=== PATIENT | male | born 1975 | race Caucasian/White ===

== ENCOUNTER 2023-10-30 15:37 | Emergency (ER) | payer MEDICARE, MEDICAID, SELFPAY ==
[2023-10-30] VITALS (10 sets, daily range): BP systolic 112–129; BP diastolic 61–83; PULSE 81–89; RESP 17–22; TEMP 36.6–36.9; O2SAT 95–98; BMI 38.7
--- NOTE | 2023-10-30 15:34 | ECG_ITS ---
APPROVED REPORT Exam: Resting ECG HR:89 bpm ECG Measurements Heart Rate 89 AXES QRSd 86 QRS 64 QT 353 T 13 QTc 400 Conclusion Nondiagnostic, see repeat Electronically signed by : MUKESH AMADOR, 10/30/2023 23:14:39
--- NOTE | 2023-10-30 15:47 | ECG_ITS ---
APPROVED REPORT Exam: Resting ECG HR:84 bpm ECG Measurements Heart Rate 84 AXES DC 183 P 28 QRSd 84 QRS 36 QT 372 T 11 QTc 413 Conclusion Sinus rhythm with frequent PVCs Electronically signed by : MUKESH AMADOR, 10/30/2023 23:14:53
--- NOTE | 2023-10-30 15:52 | XR_ITS ---
FINAL REPORT CLINICAL HISTORY: cp FINDINGS: SINGLE-VIEW CHEST The heart size is normal. The mediastinum is normal. The lungs are clear. There is no pneumothorax. IMPRESSION: No acute cardiopulmonary process. Reviewed, Interpreted and Dictated by Vahid Hudson III, MD Transcribed by Trish Warren Authenticated and [facility]
[2023-10-30 15:59] LABS: Basophils # 0.1 K/mm3 (0-0.2); Basophils % 0.9 % (0.1-2.0); Eosinophils # 0.1 K/mm3 (0.0-0.4); Eosinophils % 1.2 % (0.1-12.0); Hematocrit 39.1 % (42.0-52.0); Hemoglobin 12.7 g/dL (14.1-18.0); Lymphocytes % 22.7 % (10-50); Mean Corpuscular HGB Conc 32.6 g/dL (31.8-35.4); Mean Corpuscular Hemoglobin 31.8 pg (27.0-31.2); Mean Corpuscular Volume 97.5 fl (80-94); Monocytes # 0.7 K/mm3 (0.1-1.0); Monocytes % 7.6 % (1.7-9.3); Neutrophils # 6.1 K/mm3 (1.8-7.8); Neutrophils % 67.7 % (37.0-80.0); Platelet Count 237 K/mm3 (142-424); Red Blood Count 4.01 M/mm3 (4.60-6.20); Red Cell Distribution Width 15.5 % (11.5-17.5)
[2023-10-30 16:00] LABS: VBG Base Excess -4.1 mmol/L (-2.4-2.3); VBG HCO3 20.7 mmol/L (23-30); VBG Oxygen Saturation 95.6 % (50-70); VBG PCO2 33.8 mmol/L (35-51); VBG PO2 79.9 mmol/L (28-40); VBG Total CO2 21.7 mmol/L (23-27)
[2023-10-30 16:01] LABS: Lactate Venous 2.3 mmol/L (0.4-2.0)
[2023-10-30 16:03] LABS: Chloride 104 mmol/L (98-107); Potassium 4.2 mmoL/L (3.5-5.1); Sodium 137 mmol/L (136-145)
[2023-10-30 16:05] LABS: Alanine Aminotransferase 71 U/L (12-78); Aspartate Amino Transferase 55 U/L (17-59); Blood Urea Nitrogen 5 mg/dl (9-20); Creatinine Clearance Estimated 151 mL/min (50-200); Estimated Glomerular Filt Rate 89 ml/min (>60); GFR (African American) 108 ML/MIN (>60)
[2023-10-30 16:06] LABS: Albumin Level 3.6 g/dl (3.5-5.0); Albumin/Globulin Ratio 1.2 (1.1-1.8); Alkaline Phosphatase 69 U/L (38-126); Anion Gap 11.2 mEq/L (5-15); Bilirubin,Total 0.5 mg/dl (0.2-1.3); Carbon Dioxide 26 mmol/L (22.0-30.0); Globulin 3.1 g/dL (1.3-3.2); Glucose 108 mg/dl (74-100); Total Protein,Serum 6.7 g/dl (6.3-8.2)
--- NOTE | 2023-10-30 16:15 | ED_ITS ---
Discharge Plan Disposition Patient Disposition: Home, Self-Care Chief Complaint: Chest Pain Referrals Follow up/Referrals: Rajiv Godfrey APRN [Primary Care Provider] - See instructions Troy Mendoza MD [Staff Physician] - See instructions Activity Restrictions/Add. Instructions Additional Instructions/Restrictions: Call your family doctor to establish care for this visit to the emergency department and schedule follow-up within 48 hours to ensure improvement. If you have any worsening of your condition or any other concerning signs or symptoms, return to the emergency department or your primary care doctor for further evaluation. Follow-up with Dr. Mendoza, shuttle filler, office for further evaluation. Clinical Impressions Clinical Impression: Chest pain Discharge ED Provider: Arun Karimi General Adult HPI General Chief complaint: Chest Pain Stated complaint: Chest Pain Time Seen by Provider: 10/30/23 15:52 Mode of Arrival: EMS Source of Information: Patient Limitations: No Limitations Description of Symptoms (Recalled from ER Triage Doc. by RN): Pt c/o left sided chest pain that started an hout prior to arrival. Pt describes pain as sudden and sharp. Pain was 8/10 prior to EMS given 1 spray of nitro and 324mg of aspirin. Pt reports current pain level is 2/10. Pain does not radiate. Pt denies N/V, SOA, dizziness. History of Present Illness HPI narrative: Please note that above description of symptoms, in this electronic medical record under categorization of recalled from ER triage doctor by RN are reflective of an initial nursing assessment, however, is not reflective of my full history and physical exam that was personally taken and clarified. Consequentially, this preceding description of symptoms, which may include the patient's categorized chief complaint in the EMR, do not reflect my personal clinical impression, and the ultimate description of history of present illness and patient stated complaints should be deferred to this section of the note. Unless stated otherwise or congruent with this section of the note, additional signs, symptoms, or incongruence should be interpreted as inaccurate with my clinical impression. Related Data Allergies Allergy/AdvReac Type Severity Reaction Status Date / Time carbamazepine [From Tegretol] Allergy Verified 10/30/23 16:25 [facility] Disclaimer: The information contained in this section may have been updated after the patient was seen, as this information can be updated by other users. Social History Smoking Status: Never smoker alcohol intake: never current occupational status: unemployed Travel in the last 8 weeks: None ROS Obtained: Yes All systems reviewed & no additional complaints except as documented Physical Exam General General appearance: alert, in no apparent distress and other Head Head exam: atraumatic and normocephalic Eye Eye exam: Present normal appearance, PERRL and EOMI ENT ENT exam: Present mucous membranes moist Neck Neck exam: Present normal inspection, full ROM and trachea midline Respiratory Respiratory exam: Absent respiratory distress, wheezes, stridor, accessory muscle use or prolonged expiratory phase Cardiovascular Cardiovascular exam: Present regular rate and normal rhythm Abdominal Exam Abdominal exam: Present soft; Absent distention, tenderness, guarding, rebound or rigidity Extremities Exam Extremities exam: Absent edema Neurological Exam Neurological exam: Present alert, oriented X3, CN II-XII intact, normal gait and other (Tremor noted at rest); Absent motor sensory deficit Skin Skin exam: Present warm and dry; Absent diaphoresis or erythema Medical Decision Making Medical Records Medical records reviewed: Yes I reviewed the patient's medical records. Ming Inquiry Pt receiving controlled substance: No Ming was queried for this patient: No Vital Signs: 10/30/23 15:37 10/30/23 16:01 10/30/23 16:30 Temperature 97.9 F Temperature Source Oral Pulse Rate 89 88 Pulse Rate [Apical] 89 Respiratory Rate 20 17 Blood Pressure 117/72 113/73 Blood Pressure [Right Arm] 129/70 Blood Pressure Mean 80 Blood Pressure Mean [Right Arm] 89 Blood Pressure Source [Right Arm] Automatic Cuff Blood Pressure Position [Right Arm] Sitting 02 Sat by Pulse Oximetry 95 97 96 Oxygen Delivery Method Room Air Room Air Room Air 10/30/23 17:00 10/30/23 17:30 10/30/23 18:00 Temperature Temperature Source Pulse Rate 89 Pulse Rate [Apical] Respiratory Rate 22 21 22 Blood Pressure 113/61 123/78 116/63 Blood Pressure [Right Arm] Blood Pressure Mean Blood Pressure Mean [Right Arm] Blood Pressure Source [Right Arm] Blood Pressure Position [Right Arm] 02 Sat by Pulse Oximetry 97 Oxygen Delivery Method Room Air 10/30/23 18:30 Temperature Temperature Source Pulse Rate 89 Pulse Rate [Apical] Respiratory Rate 18 Blood Pressure 112/61 Blood Pressure [Right Arm] Blood Pressure Mean Blood Pressure Mean [Right Arm] Blood Pressure Source [Right Arm] Blood Pressure Position [Right Arm] 02 Sat by Pulse Oximetry 96 Oxygen Delivery Method Room Air Lab Data Lab Results 10/30/23 15:40: WBC 9.0, RBC 4.01 L, Hgb 12.7 L, Hct 39.1 L, MCV 97.5 H, MCH 31.8 H, MCHC 32.6, RDW 15.5, Plt Count 237, MPV 8.0, Neut % (Auto) 67.7, Lymph % (Auto) 22.7, Crawford % (Auto) 7.6, Eos % (Auto) 1.2, Baso % (Auto) 0.9, Neut # (Auto) 6.1, Lymph # (Auto) 2.0, Crawford # (Auto) 0.7, Eos # (Auto) 0.1, Baso # (Auto) 0.1, Sodium 137, Potassium 4.2, Chloride 104, Carbon Dioxide 26, Anion Gap 11.2, BUN 5 L, Creatinine 0.90, Estimated Creat Clear 151, Estimated GFR 89, Est GFR ( Amer) 108, Glucose 108 H, Calcium 9.0, Magnesium 1.4 L, Total Bilirubin 0.5, AST 55, ALT 71, Alkaline Phosphatase 69, Troponin I < 0.01, N T-Pro-B Natriuret Pep 198 H, Total Protein 6.7, Albumin 3.6, Globulin 3.1, Albumin/Globulin Ratio 1.2, TSH 4.21, Thyroxine (T4) 5.7 10/30/23 15:52: VBG pH 7.40, VBG pCO2 33.8 L, VBG pO2 79.9 H, VBG HCO3 20.7 L, V BG Total CO2 21.7 L, VBG O2 Saturation 95.6 H, VBG Base Excess -4.1 L, VBG Lactic Acid 2.3 H 10/30/23 18:41: Troponin I < 0.01 10/30/23 15:40 10/30/23 15:40 Orders (Tests/Meds): ED MEDICATIONS Discontinued Medications Generic Name Dose Route Start Last Admin Trade Name Freq PRN Reason Stop Dose Admin Aspirin 324 mg 10/30/23 15:52 10/30/23 17:12 Aspirin 81mg Chewable Tablet PO 10/30/23 15:53 Not Given ONCE ONE Magnesium Sulfate 2 gm in 50 mls @ 50 mls/hr 10/30/23 17:36 10/30/23 17:44 Magnesium Sulfate 2gm/50ml Premix IV 10/30/23 18:35 50 mls/hr ONCE ONE Administration Magnesium Sulfate 2 gm in 50 mls @ 50 mls/hr 10/30/23 17:36 10/30/23 18:42 Magnesium Sulfate 2gm/50ml Premix IV 10/30/23 18:35 50 mls/hr ONCE ONE Administration ORDERS Category Date Time Status XR chest portable Stat Exams 10/30/23 15:52 Completed Complete Blood Count Auto Diff Stat Lab 10/30/23 15:40 Completed Comprehensive Metabolic Panel Stat Lab 10/30/23 15:40 Completed Magnesium Stat Lab 10/30/23 15:40 Completed NT Pro Brain Natriuretic Pep. Stat Lab 10/30/23 15:40 Completed T4 (Thyroxine) Stat Lab 10/30/23 15:40 Completed TSH [Thyroid Stimulating Hormone] Stat Lab 10/30/23 15:40 Completed Troponin I Q3H Lab 10/30/23 18:41 Completed Troponin I Q3H Lab 10/30/23 22:00 Ordered Troponin I Stat Lab 10/30/23 15:40 Completed Venous Blood Gas Stat RT 10/30/23 15:52 Completed HEART Score History (anamnesis): Slightly suspicious ECG: Non-specific disturbance Age: 45-65 years Risk factors: 1-2 risk factors Troponin: </= normal limit HEART Score: 3 Medical Decision Narrative: Chronically ill 48-year-old man history of seizure disorder, hypertension, hypothyroidism, presenting with chest pain. Patient states that just for arrival, started having left-sided chest pain. Started while he was on the couch. Just left of sternum, intermittently stabbing, was only there for a couple of minutes then self resolved. Not positional, not exertional, nothing in particular brings it on or made it better. Has never had this in the past. No cough, fevers, chills, shortness of breath, nausea, vomiting, diaphoresis, sick contacts, or any other concerns. No DVT or PE risk factors. History was obtained via conversation with patient. On arrival, patient hemodynamically stable, alert, oriented x4, appropriate, GCS 15, moving all extremities spontaneously, pupils equal and reactive to light. Full physical exam performed and significant for chronically ill disheveled appearing male in no acute distress. Lungs are clear to auscultation bilaterally anterior and posteriorly. Nontachypneic, nontachycardic, normotensive, neurologically intact without any acute findings. Bilateral lower extremities without edema, pulses are equal and symmetric in bilateral upper and lower extremities. Differential includes microvascular coronary artery disease, CHF, ACS, UT, coronary artery dissection, pneumothorax, PE, dissection, pericarditis, myocarditis, pneumothorax, aortic aneurysm, pneumonia, bronchitis, among others. Patient was given 324 mg aspirin p.o. for symptomatic management and correction of underlying abnormalities. Workup independently interpreted and significant for nonactionable CBC or chemistry. Initial troponin negative. Chest x-ray without acute cardiopulmonary airspace disease. See radiology read for full review of final results. Independent rotation of initial EKG nondiagnostic with baseline tremor. Independent interpretation of EKG shows sinus rhythm about [address] or T wave changes concerning for acute ischemia. Patient is having frequent PVCs, but irregularly occurring. OK, QRS, QT intervals within normal limits. Heart score 3. Patient was placed in observation beginning at 4 PM in order to order to rule out evolving UT with delta troponins and determine need for admission versus home-going. The patient was provided serial exams and monitoring, aspirin while awaiting results. Independent interpretation of results demonstrated negative delta troponin. On reevaluation, patient still without pain or discomfort. At this time, I feel patient is appropriate for discharge. Total observation time 3 hours. Because patient at baseline without signs or symptoms of clinical decompensation, deemed appropriate for discharge. Results were relayed to patient who voiced understanding and were agreeable to outpatient management and follow up. I discussed my clinical impression with patient and answered all questions. At this time, the evidence for any other entities in the differential is insufficient to warrant any further testing or ED observation. This was explained as well. Advisory was given that persistent or worsening symptoms require further evaluation. I confirmed the understanding of this discussion. Critical Care Critical Care Time Critical Care Time: No
[2023-10-30 16:16] LABS: NT Pro Brain Natriuretic Pep. 198 pg/mL (0-125)
[2023-10-30 16:21] LABS: Troponin I < 0.01 ng/ml (0.00-0.034)
[2023-10-30 16:23] LABS: T4 (Thyroxine) 5.7 ug/dl (5.53-11.0)
[2023-10-30 16:25] LABS: Magnesium 1.4 mg/dl (1.6-2.3)
[2023-10-30 16:37] LABS: Thyroid Stimulating Hormone 4.21 uIU/mL (0.465-4.68)
[2023-10-30] MEDS: MAGNESIUM SULFATE IN WATER 2 GM/50 ML PIGGYBACK IV ×2 (17:44→18:42)
[2023-10-30 19:13] LABS: Troponin I < 0.01 ng/ml (0.00-0.034)
--- NOTE | 2023-10-30 19:39 | PC.NURSE ---
anil notified that patient is ready to be picked up
[2023-10-30 20:01] LABS: Reflex Lactic Add Lactic Reflex
== END 2023-10-30 20:20 | disposition home or self-care (01) ==
PROVIDERS: Emergency Provider Emergency Medicine; PCP Nurse Practitioner Acute Care
DX: R07.9 Chest pain, unspecified (principal); I49.3 Ventricular premature depolarization
CPT/HCPCS: 71045; 80053; 82803; 83735; 83880; 84436; 84443; 84484; 85025; 93005; 96365; 99284; J3475

== ENCOUNTER 2024-05-08 16:46 | Emergency (ER) | payer MEDICARE, MEDICAID, SELFPAY ==
[2024-05-08 16:46] VITALS: BP 153/85; PULSE 76; RESP 16; TEMP 36.6; O2SAT 95; BMI 37.1
--- NOTE | 2024-05-08 16:54 | HMH.EDGENADL ---
Discharge Plan Disposition Patient Disposition: Home, Self-Care Condition: Good Referrals Follow up/Referrals: Rajiv Godfrey APRN [Primary Care Provider] - See instructions Activity Restrictions/Add. Instructions Additional Instructions/Restrictions: You need to follow-up both with psychiatry and neurology for further evaluation of your tremors. Schedule appointment as soon as possible. Return to ER for any worsening signs or symptoms as needed Clinical Impressions Clinical Impression: Tremor Print Language Print Language: Chilean Discharge ED Provider: Arun Karimi General Adult HPI <RENETTA Echols - Last Filed: 05/08/24 18:06> General Chief complaint: Seizure Stated complaint: TREMORS Time Seen by Provider: 05/08/24 16:54 Mode of Arrival: EMS Source of Information: EMS Limitations: No Limitations Description of Symptoms (Recalled from ER Triage Doc. by RN): Reports possible seizure activity. Patient with tremors. History of Present Illness HPI narrative: Patient presents with what was reported initially as a seizure. EMS got called because patient was having a reported seizure. Patient does have an review of his medication list a history of seizure disorder. Unfortunate the patient is a poor historian and is actually a zurita of the [facility]. While we received a medication list we did not receive a medical health summary thus patient has unknown chronic conditions. He review his medication list however he does have apparently a seizure disorder given he is on Depakote as well as a psychiatric disorder as he is on multiple psychoactive medications. Patient reports that he has had hands shaking since he went to [facility] and they change medication. Patient does not know what provider he saw on regimen nor what medication they changed. According to EMS patient was not having a seizure however was having tremulous movements of his left upper extremity and right anterior thigh and that is what the staff reported they thought with a seizure. Patient however arrives without any chest pain fever chills hemoptysis hematochezia melena and denies any current complaints. He seems to be unbothered about the tremors and denies it causes him pain. Related Data Allergies Allergy/AdvReac Type Severity Reaction Status Date / Time carbamazepine (From Tegretol) Allergy Verified 10/30/23 16:25 PF[facility] <RENETTA Echols - Last Filed: 05/08/24 18:06> [facility] Disclaimer: The information contained in this section may have been updated after the patient was seen, as this information can be updated by other users. Social History (Updated 10/30/23 @ 19:26 by Arun Karimi MD) Smoking Status: Unknown if ever smoked alcohol intake: never current occupational status: unemployed Travel in the last 8 weeks: None <RENETTA Echols - Last Filed: 05/08/24 18:06> ROS Obtained: Yes Systems reviewed as appropriate & no additional complaints except as documented Physical Exam <RENETTA Echols - Last Filed: 05/08/24 18:06> General General appearance: alert and in no apparent distress Respiratory Respiratory exam: Present normal lung sounds bilaterally Cardiovascular Cardiovascular exam: Present regular rate Neurological Exam Neurological exam: Present alert and oriented X3 Medical Decision Making <RENETTA Echols - Last Filed: 05/08/24 18:06> Medical Records Medical records reviewed: Yes I reviewed the patient's medical records. Screening: Per USPSTF and CDC recommendations, given the prevalence of disease in our region, it is our hospital?s policy to screen for HIV and viral Hepatitis for all patients aged 18 and over and those with ongoing risk factors. Ming Inquiry Pt receiving controlled substance: No Vital Signs: 05/08/24 16:46 05/08/24 17:25 05/08/24 18:10 Temperature 97.9 F 98.2 F Temperature Source Oral Pulse Rate 82 77 Pulse Rate [Radial] 76 Respiratory Rate 16 18 Blood Pressure 139/74 132/94 H Blood Pressure [Right Arm] 153/85 H Blood Pressure Mean [Right Arm] 107 Blood Pressure Source [Right Arm] Automatic Cuff Blood Pressure Position [Right Arm] Sitting 02 Sat by Pulse Oximetry 95 96 Oxygen Delivery Method Room Air Room Air Room Air Lab Data Lab results reviewed: Yes I reviewed the patient's lab results. Lab Results 05/08/24 16:48: WBC 7.6, RBC 3.99 L, Hgb 12.6 L, Hct 36.1 L, MCV 90.5, MCH 31.6 H, MCHC 34.9, RDW 15.3, Plt Count 274, MPV 7.1 L, Neut % (Auto) 66.1, Lymph % (Auto) 25.5, Norton % (Auto) 6.7, Eos % (Auto) 1.0, Baso % (Auto) 0.7, Neut # (Auto) 5.0, Lymph # (Auto) 1.9, Norton # (Auto) 0.5, Eos # (Auto) 0.1, Baso # (Auto) 0.1, Sodium 138, Potassium 3.9, Chloride 102, Carbon Dioxide 26, Anion Gap 13.9, BUN 10, Creatinine 1.00, Estimated Creat Clear 130, Estimated GFR 79, Est GFR ( Amer) 96, Glucose 111 H, Calcium 9.3, Magnesium 1.6, Total Bilirubin 0.5, AST 39, ALT 30, Alkaline Phosphatase 62, Total Creatine Kinase 368 H, Total Protein 8.2, Albumin 4.1, Globulin 4.1 H, Albumin/Globulin Ratio 1.0 L 05/08/24 17:05: Lactate 1.9 05/08/24 16:48 05/08/24 16:48 Orders (Tests/Meds): ED MEDICATIONS Discontinued Medications Generic Name Dose Route Start Last Admin Trade Name Freq PRN Reason Stop Dose Admin Benztropine Mesylate 2 mg 05/08/24 17:06 05/08/24 17:51 Benztropine 1mg Tablet PO 05/08/24 17:07 2 mg ONCE ONE Administration Diphenhydramine HCl 50 mg 05/08/24 17:16 05/08/24 17:36 Diphenhydramine 50mg/Ml Vial IM 05/08/24 17:17 50 mg ONCE ONE Administration ORDERS Category Date Time Status CBC w/Auto Diff [Complete Blood Count Auto Diff] Stat Lab 05/08/24 16:48 Completed CK [Creatine Kinase] Stat Lab 05/08/24 16:48 Completed CMP [Comprehensive Metabolic Panel] Stat Lab 05/08/24 16:48 Completed Lactic Acid Stat Lab 05/08/24 17:05 Completed Magnesium Stat Lab 05/08/24 16:48 Completed Medical Decision Narrative: In summary patient is a 48-year-old male who presents to the emergency department for evaluation of tremors. Patient is hemodynamically stable upon arrival, afebrile. Physical exam is remarkable for currently a resting tremor of the left upper extremity from the elbow down and isolated right quadriceps tremor the tremors are regular moderate in speed and amplitude. They persist even with intention as well as at rest. Patient has no neuromuscular weakness although I do not know what his functional baseline is he was able to move from the ambo stretcher to the bed without assistance. He is awake alert and somewhat oriented to person place and circumstance but has difficulty recalling specific details of his medical history including who is seeing and for what problem and what medications he is on. He is a zurita of the [facility]. Cranial nerves II through XII are intact grossly to exam. Patient has no focal neurologic deficits otherwise. Patient has no tetany.. Differential diagnosis includes dyskinesia versus electrolyte abnormalities versus parkinsonian is him versus EPS etc. Initial workup will be conducted with hematologic labs. Initial interventions include Cogentin and Benadryl. Initial workup reviewed by me shows his hematologic labs are significant for a CK of 368. Upon repeat evaluation patient briefly appeared to not have the tremor however when he tried to move it began again. Again it persists not only at rest but with intention. However he has no focal neurologic deficits otherwise.. Given this patient is appropriate for discharge with referral to his neurologist and psychiatrist within 48 hours or sooner if his symptoms worsen or progress. <Arun Karimi MD - Last Filed: 05/08/24 20:02> Vital Signs: 05/08/24 16:46 05/08/24 17:25 05/08/24 18:10 Temperature 97.9 F 98.2 F Temperature Source Oral Pulse Rate 82 77 Pulse Rate [Radial] 76 Respiratory Rate 16 18 Blood Pressure 139/74 132/94 H Blood Pressure [Right Arm] 153/85 H Blood Pressure Mean [Right Arm] 107 Blood Pressure Source [Right Arm] Automatic Cuff Blood Pressure Position [Right Arm] Sitting 02 Sat by Pulse Oximetry 95 96 Oxygen Delivery Method Room Air Room Air Room Air Lab Data Lab Results 05/08/24 16:48: WBC 7.6, RBC 3.99 L, Hgb 12.6 L, Hct 36.1 L, MCV 90.5, MCH 31.6 H, MCHC 34.9, RDW 15.3, Plt Count 274, MPV 7.1 L, Neut % (Auto) 66.1, Lymph % (Auto) 25.5, Norton % (Auto) 6.7, Eos % (Auto) 1.0, Baso % (Auto) 0.7, Neut # (Auto) 5.0, Lymph # (Auto) 1.9, Norton # (Auto) 0.5, Eos # (Auto) 0.1, Baso # (Auto) 0.1, Sodium 138, Potassium 3.9, Chloride 102, Carbon Dioxide 26, Anion Gap 13.9, BUN 10, Creatinine 1.00, Estimated Creat Clear 130, Estimated GFR 79, Est GFR ( Amer) 96, Glucose 111 H, Calcium 9.3, Magnesium 1.6, Total Bilirubin 0.5, AST 39, ALT 30, Alkaline Phosphatase 62, Total Creatine Kinase 368 H, Total Protein 8.2, Albumin 4.1, Globulin 4.1 H, Albumin/Globulin Ratio 1.0 L 05/08/24 17:05: Lactate 1.9 Orders (Tests/Meds): ED MEDICATIONS Discontinued Medications Generic Name Dose Route Start Last Admin Trade Name Freq PRN Reason Stop Dose Admin Benztropine Mesylate 2 mg 05/08/24 17:06 05/08/24 17:51 Benztropine 1mg Tablet PO 05/08/24 17:07 2 mg ONCE ONE Administration Diphenhydramine HCl 50 mg 05/08/24 17:16 05/08/24 17:36 Diphenhydramine 50mg/Ml Vial IM 05/08/24 17:17 50 mg ONCE ONE Administration ORDERS Category Date Time Status CBC w/Auto Diff [Complete Blood Count Auto Diff] Stat Lab 05/08/24 16:48 Completed CK [Creatine Kinase] Stat Lab 05/08/24 16:48 Completed CMP [Comprehensive Metabolic Panel] Stat Lab 05/08/24 16:48 Completed Lactic Acid Stat Lab 05/08/24 17:05 Completed Magnesium Stat Lab 05/08/24 16:48 Completed Medical Decision Narrative: In summary patient is a 48-year-old male who presents to the emergency department for evaluation of tremors. Patient is hemodynamically stable upon arrival, afebrile. Physical exam is remarkable for currently a resting tremor of the left upper extremity from the elbow down and isolated right quadriceps tremor the tremors are regular moderate in speed and amplitude. They persist even with intention as well as at rest. Patient has no neuromuscular weakness although I do not know what his functional baseline is he was able to move from the ambo stretcher to the bed without assistance. He is awake alert and somewhat oriented to person place and circumstance but has difficulty recalling specific details of his medical history including who is seeing and for what problem and what medications he is on. He is a zurita of the [facility]. Cranial nerves II through XII are intact grossly to exam. Patient has no focal neurologic deficits otherwise. Patient has no tetany.. Differential diagnosis includes dyskinesia versus electrolyte abnormalities versus parkinsonian is him versus EPS etc. Initial workup will be conducted with hematologic labs. Initial interventions include Cogentin and Benadryl. Initial workup reviewed by me shows his hematologic labs are significant for a CK of 368. Upon repeat evaluation patient briefly appeared to not have the tremor however when he tried to move it began again. Again it persists not only at rest but with intention. However he has no focal neurologic deficits otherwise.. Given this patient is appropriate for discharge with referral to his neurologist and psychiatrist within 48 hours or sooner if his symptoms worsen or progress. I was consulted by the ADRY, and we discussed the complexity of the problems being addressed. I approved the treatment and management plan for this patient's care in the Emergency Department, thus performing a substantive portion of the medical decision making. Arun Karimi MD Critical Care <RENETTA Echols - Last Filed: 05/08/24 18:06> Critical Care Time Critical Care Time: No
[2024-05-08 17:08] LABS: Albumin Level 4.1 g/dl (3.5-5.0); Chloride 102 mmol/L (98-107); Potassium 3.9 mmoL/L (3.5-5.1); Sodium 138 mmol/L (136-145)
[2024-05-08 17:10] LABS: Alanine Aminotransferase 30 U/L (12-78); Aspartate Amino Transferase 39 U/L (17-59); Blood Urea Nitrogen 10 mg/dl (9-20); Creatinine Clearance Estimated 130 mL/min (50-200); Estimated Glomerular Filt Rate 79 ml/min (>60); GFR (African American) 96 ML/MIN (>60)
[2024-05-08 17:11] LABS: Alkaline Phosphatase 62 U/L (38-126); Anion Gap 13.9 mEq/L (5-15); Bilirubin,Total 0.5 mg/dl (0.2-1.3); Calcium 9.3 mg/dl (8.4-10.2); Carbon Dioxide 26 mmol/L (22.0-30.0); Creatine Kinase 368 U/L (55-170); Globulin 4.1 g/dL (1.3-3.2); Glucose 111 mg/dl (74-100); Total Protein,Serum 8.2 g/dl (6.3-8.2)
[2024-05-08 17:12] LABS: Magnesium 1.6 mg/dl (1.6-2.3)
[2024-05-08 17:21] LABS: Basophils # 0.1 K/mm3 (0-0.2); Basophils % 0.7 % (0.1-2.0); Eosinophils # 0.1 K/mm3 (0.0-0.4); Hematocrit 36.1 % (42.0-52.0); Hemoglobin 12.6 g/dL (14.1-18.0); Lymphocytes # 1.9 K/mm3 (0.7-4.5); Lymphocytes % 25.5 % (10-50); Mean Corpuscular HGB Conc 34.9 g/dL (31.8-35.4); Mean Corpuscular Hemoglobin 31.6 pg (27.0-31.2); Mean Corpuscular Volume 90.5 fl (80-94); Mean Platelet Volume 7.1 fl (7.4-10.4); Monocytes # 0.5 K/mm3 (0.1-1.0); Monocytes % 6.7 % (1.7-9.3); Neutrophils % 66.1 % (37.0-80.0); Platelet Count 274 K/mm3 (142-424); Red Blood Count 3.99 M/mm3 (4.60-6.20); Red Cell Distribution Width 15.3 % (11.5-17.5); White Blood Count 7.6 K/mm3 (4.8-10.8)
[2024-05-08 17:25] VITALS: BP 139/74; PULSE 82; O2SAT 96
[2024-05-08 17:25] LABS: Lactic Acid 1.9 mmol/L (0.7-2.1)
[2024-05-08] MEDS: diphenhydrAMINE 50MG/ML VIAL 50 MG IM (17:36)
[2024-05-08] MEDS: BENZTROPINE 1MG TABLET 2 MG PO (17:51)
--- NOTE | 2024-05-08 17:56 | PC.NURSE ---
anil notified that pt is ready for dc, states they will send someone right now
[2024-05-08 18:10] VITALS: BP 132/94; PULSE 77; RESP 18; TEMP 36.8; O2SAT 96
== END 2024-05-08 18:11 | disposition home or self-care (01) ==
PROVIDERS: Physician Assistant; Emergency Provider Emergency Medicine; PCP Nurse Practitioner Acute Care
DX: R25.1 Tremor, unspecified (principal)
CPT/HCPCS: 80053; 82550; 83605; 83735; 85025; 96372; 99283; J1200

== ENCOUNTER 2024-06-05 11:27 | Inpatient (IN) | payer MEDICARE, MEDICAID, SELFPAY ==
[2024-06-05] VITALS (12 sets, daily range): BP systolic 108–141; BP diastolic 78–94; PULSE 43–83; RESP 16–20; TEMP 36.4–36.8; O2SAT 97–100; BMI 38.7; BMI 37.2
--- NOTE | 2024-06-05 11:36 | ECG_ITS ---
APPROVED REPORT Exam: Resting ECG HR:85 bpm ECG Measurements Heart Rate 85 AXES MI 185 P 55 QRSd 86 QRS 68 QT 340 T 3 QTc 382 Conclusion SINUS RHYTHM WITH FREQUENT VENTRICULAR PREMATURE COMPLEXES IN A BIGEMINAL PATTERN NONSPECIFIC ST & T-WAVE ABNORMALITY ABNORMAL RHYTHM ECG Electronically signed by : CARMEN WILBURN, 06/13/2024 07:25:45
--- NOTE | 2024-06-05 12:18 | PC.NURSE ---
CCOLLAR REMOVED BY
--- NOTE | 2024-06-05 12:20 | XR_ITS ---
FINAL REPORT CLINICAL HISTORY: Shortness of breath FINDINGS: SINGLE VIEW CHEST The heart is normal in size. The mediastinum is unremarkable. The lungs are clear. There is no pneumothorax. IMPRESSION: No acute process. Reviewed, Interpreted and Dictated by Vahid Hudson III, MD Transcribed by Trish Warren Authenticated and [facility]
--- NOTE | 2024-06-05 12:20 | XR_ITS ---
FINAL REPORT CLINICAL HISTORY: Fall, right ankle pain FINDINGS: Right ankle Three views were obtained. There is no fracture or dislocation. There postoperative changes of the tibia. Mild degenerative changes are noted. IMPRESSION: Degenerative and postsurgical changes. Reviewed, Interpreted and Dictated by Vahid Hudson III, MD Transcribed by Trish Warren Authenticated and [facility]
--- NOTE | 2024-06-05 12:23 | ED_ITS ---
Discharge Plan Disposition Patient Disposition: Admitted Condition: Good Discharge ED Provider: Rambo Islas Adult HPI General Chief complaint: Syncope Stated complaint: fall; possible seizure Time Seen by Provider: 06/05/24 12:12 Mode of Arrival: EMS Source of Information: Patient and EMS Limitations: No Limitations Description of Symptoms (Recalled from ER Triage Doc. by RN): pt states he was getting out of bed when he felt faint. pt states he woke up on the flood. He feels like he is back to his baseline. This has been ongoing for a few days. pt c/o R foot pain and generalized L leg pain from the fall. pt denies head, cervical or spine pain. pt has a hx of seizures but does not feel like this was a seizure. pt is in a ccollar on arrival. History of Present Illness HPI narrative: Vern Ribeiro is a 48-year-old male with a past medical history of seizures who presents to the emergency department after a syncopal episode. Patient notes that he was getting out of bed when he felt lightheaded and woke up on the floor. He believes he may have hit his head but is denying any headache or neck pain currently. He is complaining of some pain in his right ankle. He denies any recent vomiting, diarrhea fever, or abdominal pain. He states that occasionally he gets short of breath and has chest pain. He is complaining of continued lightheadedness here currently. He is unsure if he had a seizure or not but denies any urinary incontinence or tongue biting. Related Data Allergies Allergy/AdvReac Type Severity Reaction Status Date / Time carbamazepine (From Tegretol) Allergy Verified 10/30/23 16:25 [facility] Disclaimer: The information contained in this section may have been updated after the patient was seen, as this information can be updated by other users. Social History (Updated 10/30/23 @ 19:26 by Arun Karimi MD) Smoking Status: Never smoker alcohol intake: never current occupational status: unemployed Travel in the last 8 weeks: None ROS Obtained: Yes Systems reviewed as appropriate & no additional complaints except as documented Physical Exam General General appearance: alert and in no apparent distress Head Head exam: atraumatic Eye Eye exam: Present normal appearance ENT ENT exam: Present normal external ear exam and other (poor dentition throughout) Neck Neck exam: Present full ROM Chest Chest inspection: Present symmetric chest wall rise Respiratory Respiratory exam: Present normal lung sounds bilaterally; Absent respiratory distress, wheezes, stridor or accessory muscle use Cardiovascular Cardiovascular exam: Present regular rate and normal rhythm Abdominal Exam Abdominal exam: Present soft; Absent tenderness or guarding exam: Present deferred Extremities Exam Extremities exam: Present normal inspection, full ROM, tenderness (tenderness over medial ankle without deformity or swelling) and edema (1+ Pitting to the distal lower extremities) Back Exam Back exam: Present normal inspection and full ROM; Absent tenderness (No C/T/L- spine tenderness) Neurological Exam Neurological exam: Present alert, oriented X3, CN II-XII intact and normal gait; Absent motor sensory deficit Psychiatric Psychiatric exam: Present normal affect Skin Skin exam: Present warm and dry Medical Decision Making Medical Records Screening: Per USPSTF and CDC recommendations, given the prevalence of disease in our region, it is our hospital?s policy to screen for HIV and viral Hepatitis for all patients aged 18 and over and those with ongoing risk factors. Ming Inquiry Pt receiving controlled substance: No Vital Signs: 06/05/24 11:31 06/05/24 11:33 06/05/24 12:00 Temperature 97.9 F Temperature Source Oral Pulse Rate 79 65 Pulse Rate [Left] 43 L Respiratory Rate 16 Blood Pressure 131/86 137/88 Blood Pressure [Right Arm] 131/86 Blood Pressure Mean Blood Pressure Mean [Right Arm] 101 Blood Pressure Source [Right Arm] Automatic Cuff Blood Pressure Position [Right Arm] Sitting 02 Sat by Pulse Oximetry 99 98 98 Oxygen Delivery Method Room Air 06/05/24 12:31 06/05/24 13:00 06/05/24 13:33 Temperature Temperature Source Pulse Rate 75 68 73 Pulse Rate [Left] Respiratory Rate Blood Pressure 118/94 H 133/92 H 140/91 H Blood Pressure [Right Arm] Blood Pressure Mean 107 Blood Pressure Mean [Right Arm] Blood Pressure Source [Right Arm] Blood Pressure Position [Right Arm] 02 Sat by Pulse Oximetry 97 100 98 Oxygen Delivery Method Room Air Room Air Room Air 06/05/24 14:01 Temperature Temperature Source Pulse Rate 73 Pulse Rate [Left] Respiratory Rate Blood Pressure 138/78 Blood Pressure [Right Arm] Blood Pressure Mean 98 Blood Pressure Mean [Right Arm] Blood Pressure Source [Right Arm] Blood Pressure Position [Right Arm] 02 Sat by Pulse Oximetry 100 Oxygen Delivery Method Room Air Lab Data Lab Results 06/05/24 11:45: WBC 9.8, RBC 3.95 L, Hgb 12.7 L, Hct 36.9 L, MCV 93.5, MCH 32.2 H, MCHC 34.5, RDW 15.2, Plt Count 236, MPV 7.7, Neut % (Auto) 68.9, Lymph % (Auto) 20.9, Pepin % (Auto) 7.7, Eos % (Auto) 1.8, Baso % (Auto) 0.8, Neut # (Auto) 6.7, Lymph # (Auto) 2.1, Pepin # (Auto) 0.8, Eos # (Auto) 0.2, Baso # (Auto) 0.1, Sodium 139, Potassium 4.9, Chloride 105, Carbon Dioxide 30, Anion Gap 8.9, BUN 7 L, Creatinine 1.10, Estimated Creat Clear 124, Estimated GFR 71, Est GFR ( Amer) 86, Glucose 101 H, Calcium 8.7, Magnesium 1.9, Total Bilirubin 0.6, AST 38, ALT 15, Alkaline Phosphatase 52, Troponin I < 0.01, N T-Pro-B Natriuret Pep 841 H, Total Protein 7.5, Albumin 3.9, Globulin 3.6 H, Albumin/Globulin Ratio 1.1, TSH 8.08 H, Free T4 0.83 06/05/24 14:40: Lactate 1.3 06/05/24 11:45 06/05/24 11:45 Orders (Tests/Meds): ED MEDICATIONS Discontinued Medications Generic Name Dose Route Start Last Admin Trade Name Freq PRN Reason Stop Dose Admin Furosemide 80 mg 06/05/24 14:52 Furosemide 40mg/4ml Vial IV 06/05/24 14:53 ONCE ONE ORDERS Category Date Time Status CT head/brain wo con Stat Cat Scan 06/05/24 12:25 Completed Ankle XR - Right 2 Views [XR ankle RT 2V] Stat Exams 06/05/24 12:20 Completed CXR --portable [XR chest portable] Stat Exams 06/05/24 12:20 Taken BNP [NT Pro Brain Natriuretic Pep.] Stat Lab 06/05/24 11:45 Completed CBC w/Auto Diff [Complete Blood Count Auto Diff] Stat Lab 06/05/24 11:45 Completed CMP [Comprehensive Metabolic Panel] Stat Lab 06/05/24 11:45 Completed Free T4 (Free Thyroxine) Stat Lab 06/05/24 11:45 Completed HIV (1&2) Antibody Rapid Stat Lab 06/05/24 11:45 Received Hep C Ab with Reflex to RNA Stat Lab 06/05/24 11:45 Received Lactic Acid Stat Lab 06/05/24 14:40 Completed Magnesium Stat Lab 06/05/24 11:45 Completed TSH [Thyroid Stimulating Hormone] Stat Lab 06/05/24 11:45 Completed Troponin I Q3H Lab 06/05/24 15:30 Ordered Troponin I Q3H Lab 06/05/24 18:30 Ordered Troponin I Stat Lab 06/05/24 11:45 Completed CA echo doppler complete Stat Y 06/05/24 14:46 Completed EKG Request [ECG Request] Stat Y 06/05/24 13:09 Ordered Medical Decision Narrative: Vern Ribeiro is a 48y male with a history of seizures (reportedly takes Keppra, but patient is unsure what medication he takes but states that he has not missed any doses) who presents to the emergency department via EMS after a fall. Patient reportedly was in bed and then stood up and felt lightheaded and then collapsed to the ground. He did not bite his teeth or have urinary incontinence. He does not know if he had a seizure. He states that he is currently feeling lightheaded and has felt lightheaded over the last few days. He reports occasional chest pain and shortness of breath. He is complaining of pain to his right ankle. He is unsure if he hit his head but states he has some pain in the left side of his head but denies any neck pain or back pain or abdominal pain. Patient's C-spine was cleared Via Nexus criteria. Patient does not have any murmurs, gallops or rubs. No adventitious lung sounds. Patient does have some 1+ edema in bilateral distal lower extremities. Patient denies any history of heart attacks or heart failure. Differential diagnosis includes: Intracranial hemorrhage, seizure, cardiac arrhythmia, electrolyte derangement, hypoglycemia, anemia, hypothyroidism among others. Workup in the emergency department included: EKG, chest x-ray, CT head, right ankle x-ray, CBC, CMP, troponin, BNP, TSH/free T4 EKG interpreted by me personally. Patient is in sinus rhythm but frequent PVCs consistent with bigeminy. No ST elevation or depression. QTc normal at 382. Ventricular rate of 85 bpm. ID interval normal at 185 Chest x-ray interpreted by me personally. No focal consolidations, no pneumothorax, no pulmonary effusions. Cardiac silhouette appears mildly enlarged. Mediastinum does not appear widened Right ankle x-ray interpreted by me personally. Patient has a silviano in place to his tibia with screws that appear intact. No acute fracture or dislocation noted. Ankle mortise appears intact. CT head interpreted by me personally. No hemorrhages, mass or shift appreciated. See final radiology report for details Repeat EKG was obtained and showed no further bigeminy. Patient in normal sinus rhythm without PVCs. Lab work showed unremarkable CBC, CMP unremarkable nonactionable, initial troponin less than 0.01, BNP elevated at 841 (198 in October of this year), TSH elevated 8.08, free T4 normal at 0.83. On reassessment, patient stated that he is no longer dizzy. It is noted that at this time he is in normal sinus rhythm. Is felt that his dizziness may have been related to his bigeminy/arrhythmia and there is concern that he has heart failure that could be the source of his symptoms. Will discuss the patient's case with Dr. Mendoza with cardiology who agreed that this sounds like possible new onset heart failure and resulting arrhythmia. Recommended obtaining complete cardiac echo and admission. Discussed the patient's case with Dr. Escobar with the hospital medicine service and they agreed to evaluate and admit the patient. Critical Care Critical Care Time Critical Care Time: No
--- NOTE | 2024-06-05 12:25 | CT_ITS ---
FINAL REPORT CLINICAL HISTORY: Fall, head trauma, lightheadedness FINDINGS: Axial images of the head were obtained without contrast. Coronal reformatted images were also obtained. This study was performed with techniques to keep radiation doses as low as reasonably achievable (ALARA). Individualized dose reduction techniques using automated exposure control or adjustment of mA and/or kV according to the patient's size were employed. There is generalized age-appropriate atrophy. Periventricular low-attenuation areas are seen consistent with mild chronic ischemic changes. There is no evidence of intracranial hemorrhage or mass. There is no evidence of acute infarct. There is no evidence of shift of the midline structures. No skull abnormality is seen on the bone window images. There is mucosal thickening of multiple sinuses. IMPRESSION: Atrophy and mild periventricular chronic ischemic changes. No acute intracranial abnormality identified. Reviewed, Interpreted and Dictated by Vahid Hudson III, MD Transcribed by Trish Warren Authenticated and [facility]
[2024-06-05 12:32] LABS: Basophils # 0.1 K/mm3 (0-0.2); Basophils % 0.8 % (0.1-2.0); Eosinophils # 0.2 K/mm3 (0.0-0.4); Eosinophils % 1.8 % (0.1-12.0); Hematocrit 36.9 % (42.0-52.0); Hemoglobin 12.7 g/dL (14.1-18.0); Lymphocytes # 2.1 K/mm3 (0.7-4.5); Lymphocytes % 20.9 % (10-50); Mean Corpuscular HGB Conc 34.5 g/dL (31.8-35.4); Mean Corpuscular Hemoglobin 32.2 pg (27.0-31.2); Mean Corpuscular Volume 93.5 fl (80-94); Mean Platelet Volume 7.7 fl (7.4-10.4); Monocytes # 0.8 K/mm3 (0.1-1.0); Monocytes % 7.7 % (1.7-9.3); Neutrophils # 6.7 K/mm3 (1.8-7.8); Neutrophils % 68.9 % (37.0-80.0); Platelet Count 236 K/mm3 (142-424); Red Blood Count 3.95 M/mm3 (4.60-6.20); Red Cell Distribution Width 15.2 % (11.5-17.5); White Blood Count 9.8 K/mm3 (4.8-10.8)
[2024-06-05 12:33] LABS: Albumin Level 3.9 g/dl (3.5-5.0); Chloride 105 mmol/L (98-107); Potassium 4.9 mmoL/L (3.5-5.1); Sodium 139 mmol/L (136-145)
[2024-06-05 12:36] LABS: Alanine Aminotransferase 15 U/L (12-78); Albumin/Globulin Ratio 1.1 (1.1-1.8); Alkaline Phosphatase 52 U/L (38-126); Anion Gap 8.9 mEq/L (5-15); Aspartate Amino Transferase 38 U/L (17-59); Bilirubin,Total 0.6 mg/dl (0.2-1.3); Blood Urea Nitrogen 7 mg/dl (9-20); Calcium 8.7 mg/dl (8.4-10.2); Carbon Dioxide 30 mmol/L (22.0-30.0); Creatinine Clearance Estimated 124 mL/min (50-200); Estimated Glomerular Filt Rate 71 ml/min (>60); GFR (African American) 86 ML/MIN (>60); Globulin 3.6 g/dL (1.3-3.2); Glucose 101 mg/dl (74-100); Magnesium 1.9 mg/dl (1.6-2.3); Total Protein,Serum 7.5 g/dl (6.3-8.2)
[2024-06-05 12:52] LABS: NT Pro Brain Natriuretic Pep. 841 pg/mL (0-125)
[2024-06-05 12:55] LABS: Troponin I < 0.01 ng/ml (0.00-0.034)
--- NOTE | 2024-06-05 12:56 | PC.NURSE ---
Back from radiology
[2024-06-05 13:13] LABS: Thyroid Stimulating Hormone 8.08 uIU/mL (0.465-4.68)
--- NOTE | 2024-06-05 13:31 | ECG_ITS ---
APPROVED REPORT Exam: Resting ECG HR:68 bpm ECG Measurements Heart Rate 68 AXES TN 203 P 63 QRSd 86 QRS 89 QT 391 T 35 QTc 409 Conclusion SINUS RHYTHM NORMAL ECG Electronically signed by : CARMEN WILBURN, 06/13/2024 07:11:06
[2024-06-05 14:19] LABS: Free T4 (Free Thyroxine) 0.83 ng/dl (0.78-2.19)
--- NOTE | 2024-06-05 14:43 | PC.NURSE ---
DR HONG SPEAKING WITH DR SUAREZ
--- NOTE | 2024-06-05 14:46 | CA_ITS ---
APPROVED REPORT EXAM: Comprehensive 2D, Doppler, and color-flow Echocardiogram Conservation Officer: CHARIS Méndez, RVS Ht: 5 ft 6 in Wt: 240lbs BSA: 2.16 BP: 137/88 mmHg Indications: HTN, Possible seizure/syncope, Bigeminy of PVC's, Dizziness, Resides in assisted living facility Echo Enhancing Agent Comments: Technically limited due to patient inability to remain still nor positioned 2D Dimensions Aortic Root 2.74 cm LVEF (Boateng's) 51.20 % Left Atrium 3.79 cm LV Volume 113.20 mL RVID Base (AP4) 3.63 cm (M/F) 2.5-4.1 LV Volume Index 52.264063 mL/m2 M: 34 - 74 LVOT 1.88 cm (M/F) 1.5-2.5 LA Volume 55.50 mL LA Volume Index 25.129012 mL/m2 (M/F) 16-34 EF AP4 49.00 % EF AP2 51.2 % EF BP 51.2 % GL Strain -7.2 % M-Mode Dimensions RVDd 1.71 cm (0.9-2.6) LVDd 5.16 cm (3.5-5.7) Ao Diam 3.14 cm (2.0-3.7) LVDs 3.74 cm (3.5-5.7) IVSd 0.85 cm (0.6-1.1) PWd 1.03 cm (0.6-1.1) EF (Teich) 53.10% EPSs 0.61 cm FS 27.50% EDV (Teich) 127.20 mL TAPSE 2.42 (<1.7) ESV (Teich) 59.60 mL LV Diastology E Decel Time 250 (160-240 msec) E/A Ratio 1.36 MED E' 4.6 (>= 7 cm/sec) MED A' 7.30 cm/s E'/MED E' Ratio 23.83 (<= 14) LAT E' 6.0 (>= 10 cm/sec) LAT A' 9.10 cm/s E/LAT E' Ratio 18.27 (<= 14) Aortic Valve LVOT Max 131.0 (70-110 cm/s) MADDISON Index 0.88 cm2/m2 LVOT VTI 25.46 cm AoV Peak Vikram. 176.0 (50-130 cm/s) AO Mean GR. 6.20 (<5 mmHg) AO VTI 37.1 (18-25 cm) MADDISON (VTI) 1.90 (2.5-4.5 cm2) Mitral Valve MV E Max Vikram. 110.0 (40-130 cm/s) MV A Velocity 81.0 (40-130 cm/s) E/A Ratio 1.36 MV Decel. Time 250 (160-240 ms) MV PHT 60.0 ms Tricuspid Valve TR P. Velocity 306.00 cm/s RAP Estimate 10.00 mmHg RVSP 47.50 mmHg Left Ventricle The left ventricle is normal size. The left ventricular systolic function is normal. The left ventricular ejection fraction is within the normal range. There is normal left ventricular wall thickness. There is normal LV segmental wall motion. The left ventricular diastolic function is normal. LVEF is 55%. Right Ventricle The right ventricle is normal size. The right ventricular systolic function is normal. Atria The left atrium size is normal. The right atrium size is normal. There is no Doppler evidence of interatrial shunt. Aortic Valve Aortic valve opens well. There is no aortic valvular stenosis. No aortic regurgitation is present. Mitral Valve The mitral valve is normal in structure. No evidence of mitral valve stenosis. Trace mitral regurgitation. Tricuspid Valve The tricuspid valve leaflets are thin and pliable. Mild tricuspid regurgitation. RVSP is 35-40 mmHg. Pulmonic Valve The pulmonary valve is normal in structure. Trace pulmonic regurgitation. Great Vessels The aortic root is normal in size. The ascending aorta is not well-visualized. IVC is normal in size and collapses >50% with inspiration. Pericardium There is no pericardial effusion. Normal biventricular systolic function. Other Information Study Quality: Fair Conclusion Normal biventricular systolic function. Mild TR. Elevated RVSP 35-40 mmHg. Electronically signed by : Matilde Arriola MD 06/07/2024 20:26:56
--- NOTE | 2024-06-05 14:48 | PC.NURSE ---
PT PLACED IN GOWN FOR ECHO
--- NOTE | 2024-06-05 14:50 | PC.NURSE ---
DR HONG SPEAKING WITH DR COON FOR ADMISSION
--- NOTE | 2024-06-05 14:52 | PC.NURSE ---
DR COON AT BEDSIDE
--- NOTE | 2024-06-05 14:53 | PC.NURSE ---
SPECIALTY THERAPIST NOTIFIED OF ADMISSION
[2024-06-05 14:54] LABS: Lactic Acid 1.3 mmol/L (0.7-2.1)
--- NOTE | 2024-06-05 15:04 | EXP.HP ---
History of Present Illness *Admission Date: 06/05/24 *Reason for visit:: syncope *History of present illness: Mr. Ribeiro is a 48-year-old male who presents from [facility]. Had an episode today where he was getting out of bed and felt very faint. Woke up on the floor after the aides at the personal-usp with themselves into his room because he would not respond to knocking at the door per his report. He has a known history of seizures but does not think he had a seizure today. Denied any postictal phase. Was complaining of feeling lightheaded. On arrival to the ER, complaining of some right ankle pain. Denies chest pain, nausea, vomiting, shortness of breath. But does state he occasionally has some shortness of breath or chest pain (but not today). Continues to feel lightheaded. Appears at baseline mentation. Noted to have edema on exam. Workup in the ER with findings of elevated BNP, negative troponin. Chest imaging with increased pulmonary vascular markings. When EMS arrived, patient was having PVCs on monitoring. Initially having some arrhythmia on presentation to the ER, return to sinus rhythm. Given concern for new onset heart failure with edema and arrhythmia causing syncope, medicine was consulted for admission and further management. Patient pleasant on exam. Alert and oriented x 2. [facility] Disclaimer: The information contained in this section may have been updated after the patient was seen, as this information can be updated by other users. Medical History (Updated 06/05/24 @ 17:20 by Spencer Escobar MD) Seizure disorder Social History Smoking Status: Never smoker alcohol intake: never current occupational status: unemployed Travel in the last 8 weeks: None Review of Systems Review of Systems Review of systems (narrative): 14 point review of systems performed, pertinent positives and negatives as per HPI Meds Home Medications and Allergies Home Medications ?Medication ?Instructions ?Recorded ?Confirmed ?Type acetaminophen 325 mg tablet 325 mg PO Q4H PRN Pain (Scale 06/05/24 06/05/24 History Score 1-3) albuterol sulfate 90 mcg/actuation 2 puff inhalation Q4H PRN SOA 06/05/24 06/05/24 History aerosol inhaler (Ventolin HFA) allopurinol 300 mg tablet 300 mg PO DAILY 06/05/24 06/05/24 History aripiprazole 20 mg tablet 20 mg PO BID 06/05/24 06/05/24 History benztropine 0.5 mg tablet 0.5 mg PO BID 06/05/24 06/05/24 History divalproex 250 mg tablet,extended 250 mg PO HS 06/05/24 06/05/24 History release 24 hr divalproex 500 mg tablet,delayed 500 mg PO HS 06/05/24 06/05/24 History release docusate sodium 250 mg capsule 250 mg PO NEEDED PRN 06/05/24 06/05/24 History Constipation fluoxetine 40 mg capsule 40 mg PO DAILY 06/05/24 06/05/24 History hydroxyzine HCl 25 mg tablet 25 mg PO Q4H PRN ANXIETY 06/05/24 06/05/24 History levothyroxine 50 mcg tablet 50 mcg PO DAILY 06/05/24 06/05/24 History lorazepam 1 mg tablet 1 mg PO TID Anxiety 06/05/24 06/05/24 History metformin 500 mg tablet 500 mg PO BID 06/05/24 06/05/24 History pantoprazole 40 mg tablet,delayed 40 mg PO DAILY 06/05/24 06/05/24 History release tamsulosin 0.4 mg capsule 0.4 mg PO DAILY 06/05/24 06/05/24 History trazodone 50 mg tablet 50 mg PO HS 06/05/24 06/05/24 History New Prescriptions to Start Prescriptions: Allergies Allergy/AdvReac Type Severity Reaction Status Date / Time carbamazepine (From Tegretol) Allergy Verified 10/30/23 16:25 Exam Data for Last 24 hours Vital signs and Labs for Last 24 Hours: Temp Pulse Resp BP Pulse Ox O2 Del Method 97.9 F 73 16 138/78 100 Room Air 06/05/24 11:33 06/05/24 14:01 06/05/24 11:33 06/05/24 14:01 06/05/24 14:01 06/05/24 14:01 Laboratory Results - last 24 hr 06/05/24 11:45: WBC 9.8, RBC 3.95 L, Hgb 12.7 L, Hct 36.9 L, MCV 93.5, MCH 32.2 H, MCHC 34.5, RDW 15.2, Plt Count 236, MPV 7.7, Neut % (Auto) 68.9, Lymph % (Auto) 20.9, Jess[place] % (Auto) 7.7, Eos % (Auto) 1.8, Baso % (Auto) 0.8, Neut # (Auto) 6.7, Lymph # (Auto) 2.1, Jessamine # (Auto) 0.8, Eos # (Auto) 0.2, Baso # (Auto) 0.1, Sodium 139, Potassium 4.9, Chloride 105, Carbon Dioxide 30, Anion Gap 8.9, BUN 7 L, Creatinine 1.10, Estimated Creat Clear 124, Estimated GFR 71, Est GFR ( Amer) 86, Glucose 101 H, Calcium 8.7, Magnesium 1.9, Total Bilirubin 0.6, AST 38, ALT 15, Alkaline Phosphatase 52, Troponin I < 0.01, NT-Pro-B Natriuret Pep 841 H, Total Protein 7.5, Albumin 3.9, Globulin 3.6 H, Albumin/Globulin Ratio 1.1, TSH 8.08 H, Free T4 0.83 06/05/24 14:40: Lactate 1.3 I & O for Last 24 hours: Intake & Output 06/02/24 06/03/24 06/04/24 06/05/24 23:59 23:59 23:59 23:59 Weight 108.862 kg Constitutional Constitutional: no acute distress, obese, chronically ill appearing and cooperative *Routine HEENT Exam Head: Present normocephalic Eye: Present EOMI and PERRL ENT: Present mucous membranes moist Comments: Seborrheic dermatitis on face *Routine Neck Exam Neck: Present supple; Absent lymphadenopathy *Routine Respiratory Exam Respiratory: Present CTA bilaterally; Absent respiratory distress, rhonchi, wheezes or crackles *Routine Cardiovascular Exam Cardiovascular: Present RRR *Routine Abdominal Exam Abdominal: Present soft and normoactive bowel sounds; Absent tenderness *Routine Rectal Exam Rectal:: deferred *Routine Genitalia Exam Genitalia:: deferred *Routine Extremities Exam Extremities: Present edema (2+ to knees); Absent cyanosis or clubbing *Routine Skin Exam Skin: Present warm; Absent rash *Routine Neurological Exam Neurological: Present alert, oriented X3 and moving all extremities; Absent altered mental status Routine Psychiatric Exam Psychiatric: Present normal affect Assessment and Plan *Assessment and plan (1) Syncope: Status: Acute Category: Medical Code(s): R55 - Syncope and collapse (2) Seizure disorder: Status: Chronic Category: Medical Code(s): G40.909 - Epilepsy, unspecified, not intractable, without status epilepticus (3) Acute heart failure with preserved ejection fraction (HFpEF): Status: Acute Category: Medical Code(s): I50.31 - Acute diastolic (congestive) heart failure (4) Obesity (BMI 30-39.9): Status: Acute Category: Medical Code(s): E66.9 - Obesity, unspecified Plan Mr. Laurent is a 48-year-old male with history of seizure disorder on [facility] who lives at [facility]. Had what is suspected to be a syncopal episode. Concern for CHF on workup. Discussed case with ER physician, request admission for further management. I agreed to admit for diuresis and further treatment. Problems addressed as follows: Syncope New diagnosis of CHF -BNP elevated at 840, troponin negative at less than 0.01 on serial monitoring. Per my review of chest x-ray, has increased pulmonary vascular congestion bilaterally. Given lower extremity edema and syncopal event, will initiate diuresis with Lasix IV -Stable on room air. Goal sats greater 90%. - echo with preliminary read showing elevated RVSP. Edema bilaterally in lower extremities 2+ to knees -Monitor on telemetry for arrhythmia -Considering the patient ale if develops more arrhythmias. - Repeat CBC, CMP, magnesium ordered for the morning. Kidney function normal with BUN 7, creatinine 1. Electrolytes normal with sodium 139, potassium 4.9, magnesium 1.9. Mood disorder: Sinew home Abilify 20 mg twice daily, benztropine 0.5 mg twice daily, Prozac 40 mg daily, Ativan 1 mg 3 times a day, trazodone 50 mg nightly Seizure disorder: Free valproic acid level pending. Continue divalproex 1000 mg nightly. Will clarify med rec Hypothyroid: Levothyroxine 50 mcg at home. TSH elevated at 8. Will increase levothyroxine to 75 mcg daily Obesity complicates all aspects of his care Continue allopurinol milligrams daily for gout Continue tamsulosin 0.4 mg daily for BPH Continue pantoprazole 40 mg daily for GERD Full code Lovenox 40 mg subcu daily Cardiac diet
[2024-06-05 15:10] LABS: Coronavirus 19, PCR Not Detected (NotDetected); Influenza A, PCR Not Detected (NotDetected); Influenza B, PCR Not Detected (NotDetected)
--- NOTE | 2024-06-05 15:30 | PC.NURSE ---
Report called to John Paul MA[facility]. Delay in calling report/admission due to pt receiving echo.
[2024-06-05] MEDS: FUROSEMIDE 40MG/4ML VIAL 80 MG IV (15:46)
[2024-06-05 16:46] LABS: Troponin I < 0.01 ng/ml (0.00-0.034)
[2024-06-05 16:50] LABS: HIV Combo NEGATIVE (Negative)
[2024-06-05 18:55] LABS: Troponin I < 0.01 ng/ml (0.00-0.034)
[2024-06-05] MEDS: LORazepam 1MG TABLET 1 MG PO (21:43)
[2024-06-05] MEDS: METFORMIN 500MG TABLET 500 MG PO (21:43)
[2024-06-05] MEDS: TRAZODONE 50MG TABLET 50 MG PO (21:43)
[2024-06-05] MEDS: ARIPIPRAZOLE 20 MG 20 EACH PO (21:47)
[2024-06-05] MEDS: DIVALPROEX 500MG (Delayed-Release) TABLET 500 MG PO (21:48)
[2024-06-05] MEDS: BENZTROPINE 0.5 MG 0.5 EACH PO (21:48)
[2024-06-06] VITALS (7 sets, daily range): BP systolic 101–122; BP diastolic 64–79; PULSE 60–84; RESP 16–18; TEMP 36.6–36.8; O2SAT 95–100; BMI 36.1
[2024-06-06 07:33] LABS: HCV Ab Non Reactive (Non Reactive)
[2024-06-06 07:45] LABS: Basophils # 0.1 K/mm3 (0-0.2); Basophils % 0.7 % (0.1-2.0); Eosinophils # 0.1 K/mm3 (0.0-0.4); Eosinophils % 1.7 % (0.1-12.0); Hematocrit 36.8 % (42.0-52.0); Hemoglobin 12.5 g/dL (14.1-18.0); Lymphocytes # 2.1 K/mm3 (0.7-4.5); Lymphocytes % 24.8 % (10-50); Mean Corpuscular Hemoglobin 31.8 pg (27.0-31.2); Mean Corpuscular Volume 93.5 fl (80-94); Mean Platelet Volume 7.6 fl (7.4-10.4); Monocytes # 0.7 K/mm3 (0.1-1.0); Monocytes % 8.4 % (1.7-9.3); Neutrophils # 5.4 K/mm3 (1.8-7.8); Neutrophils % 64.4 % (37.0-80.0); Platelet Count 248 K/mm3 (142-424); Red Blood Count 3.93 M/mm3 (4.60-6.20); Red Cell Distribution Width 15.3 % (11.5-17.5); White Blood Count 8.4 K/mm3 (4.8-10.8)
[2024-06-06 07:58] LABS: Albumin Level 3.4 g/dl (3.5-5.0); Chloride 103 mmol/L (98-107)
[2024-06-06 07:59] LABS: Potassium 3.8 mmoL/L (3.5-5.1); Sodium 139 mmol/L (136-145)
[2024-06-06 08:01] LABS: Alanine Aminotransferase 15 U/L (12-78); Albumin/Globulin Ratio 0.9 (1.1-1.8); Alkaline Phosphatase 69 U/L (38-126); Anion Gap 7.8 mEq/L (5-15); Aspartate Amino Transferase 23 U/L (17-59); Bilirubin,Total 0.3 mg/dl (0.2-1.3); Blood Urea Nitrogen 15 mg/dl (9-20); Carbon Dioxide 32 mmol/L (22.0-30.0); Creatinine Clearance Estimated 98 mL/min (50-200); Estimated Glomerular Filt Rate 58 ml/min (>60); GFR (African American) 71 ML/MIN (>60); Globulin 3.6 g/dL (1.3-3.2)
[2024-06-06 08:02] LABS: Calcium 8.4 mg/dl (8.4-10.2); Cholesterol 179 mg/dl (140-200); Glucose 112 mg/dl (74-100); HDL Cholesterol 30 mg/dl (40-60); Magnesium 1.8 mg/dl (1.6-2.3); Triglycerides 234 mg/dl (30-150); VLDL Cholesterol 47 mg/dL (0-40)
[2024-06-06] MEDS: PANTOPRAZOLE 40MG TABLET 40 MG PO (11:07)
[2024-06-06] MEDS: FUROSEMIDE 40MG/4ML VIAL 40 MG IV ×2 (11:07→15:59)
[2024-06-06] MEDS: ALLOPURINOL 300MG TABLET 300 MG PO (11:07)
[2024-06-06] MEDS: LEVOTHYROXINE 75MCG (0.075MG) TAB 75 MCG PO (11:07)
[2024-06-06] MEDS: ARIPiprazole 10MG TABLET 20 MG PO ×2 (11:07→21:35)
[2024-06-06] MEDS: METFORMIN 500MG TABLET 500 MG PO ×2 (11:07→21:36)
[2024-06-06] MEDS: FLUOXETINE 20MG CAPSULE 40 MG PO (11:07)
[2024-06-06] MEDS: BENZTROPINE 1MG TABLET 0.5 MG PO ×2 (11:08→21:35)
[2024-06-06] MEDS: TAMSULOSIN 0.4MG CAPSULE 0.4 MG PO (11:08)
[2024-06-06] MEDS: LORazepam 1MG TABLET 1 MG PO ×2 (13:01→21:36)
--- NOTE | 2024-06-06 17:36 | EXP.ACUTE.PN ---
Subjective *Date: 06/06/24 *Time: 17:36 Interval history: Patient feeling somewhat better today. Breathing well. No further syncopal events. Blood pressure better controlled. Diuresing well. Kidney function and electrolytes normal. Tell her headache Medical Exam Vital signs and Labs for Last 24 Hours: Vital Signs Temp Pulse Pulse Resp BP Pulse Ox O2 Del Method 06/06/24 15:00 Room Air 06/06/24 13:00 Room Air 06/06/24 12:00 60 06/06/24 12:00 97.8 F 84 18 119/78 98 Room Air 06/06/24 10:32 Room Air 06/06/24 08:00 70 06/06/24 08:00 Room Air 06/06/24 08:00 97.8 F 72 18 122/69 96 Room Air 06/06/24 06:41 Room Air 06/06/24 05:00 Room Air 06/06/24 04:00 70 06/06/24 03:58 97.8 F 68 18 101/73 L 96 Room Air 06/06/24 02:54 Room Air 06/06/24 01:00 Room Air 06/06/24 00:00 60 06/05/24 23:56 97.6 F 72 16 138/81 98 Room Air 06/05/24 23:00 Room Air 06/05/24 21:00 Room Air 06/05/24 20:00 Room Air 06/05/24 20:00 80 06/05/24 19:58 98.2 F 83 18 108/83 L 97 Room Air 06/05/24 18:49 Room Air Intake and Output 06/06/24 06/06/24 06/06/24 07:59 15:59 23:59 Intake Total 240 / 240 Output Total 980 / 1930 750 / 1930 200 / 1930 Balance -980 / -1690 -510 / -1690 -200 / -1690 Intake: Intake, Oral Amount 240 / 240 Output: Output, Urine Amount 980 / 1930 750 / 1930 200 / 1930 Other: Number of Unmeasured Voids 0 Number of Bowel Movements 1 Weight 102.058 kg Patient Weight 06/06/24 23:59 Weight 102.058 kg Laboratory Results - last 24 hr 06/05/24 11:45: Hepatitis C Antibody Non reactive 06/05/24 15:00: SARS-CoV-2 (PCR) Not detected, Influenza A Untype (PCR) Not detected, Influenza Type B (PCR) Not detected 06/05/24 18:15: Troponin I < 0.01 06/06/24 07:08: WBC 8.4, RBC 3.93 L, Hgb 12.5 L, Hct 36.8 L, MCV 93.5, MCH 31.8 H, MCHC 34.0, RDW 15.3, Plt Count 248, MPV 7.6, Neut % (Auto) 64.4, Lymph % (Auto) 24.8, [place] % (Auto) 8.4, Eos % (Auto) 1.7, Baso % (Auto) 0.7, Neut # (Auto) 5.4, Lymph # (Auto) 2.1, [place] # (Auto) 0.7, Eos # (Auto) 0.1, Baso # (Auto) 0.1, Sodium 139, Potassium 3.8 D, Chloride 103, Carbon Dioxide 32 H, Anion Gap 7.8, BUN 15 D, Creatinine 1.30 H, Estimated Creat Clear 98, Estimated GFR 58 L, Est GFR ( Amer) 71, Glucose 112 H, Calcium 8.4, Magnesium 1.8, Total Bilirubin 0.3, AST 23 D, ALT 15, Alkaline Phosphatase 69, Total Protein 7.0, Albumin 3.4 L D, Globulin 3.6 H, Albumin/Globulin Ratio 0.9 L, Triglycerides 234 H, Cholesterol 179, LDL Cholesterol Direct 106.10, VLDL Cholesterol 47 H, HDL Cholesterol 30 L, Cholesterol/HDL Ratio 6.0 H I & O for Labs for Last 24 Hours: Intake & Output 06/03/24 06/04/24 06/05/24 06/06/24 23:59 23:59 23:59 23:59 Intake Total 360 / 360 240 / 240 Output Total 2250 / 3230 1930 / 1930 Balance -1890 / -2870 -1690 / -1690 Weight 104.525 kg 102.058 kg Constitutional: Present no acute distress, obese, chronically ill appearing and cooperative Head: Present atraumatic ENT: Present normal exam Comment:: Seborrheic dermatitis on face Respiratory: Present normal respiratory effort; Absent rhonchi, wheezes or crackles Cardiac: Present Reg Rate and Rhythm GI: Present soft and normal bowel sounds; Absent distention or tenderness Extremities: Present normal inspection, full ROM and edema (1+ edema bilateral lower extremities) Skin: Present intact; Absent erythema Neuro: Present Grossly Intact, alert, awake, oriented x 3 and moves all extremities Assessment and Plan *Assessment and plan (1) Syncope: Status: Acute Category: Medical Code(s): R55 - Syncope and collapse (2) Seizure disorder: Status: Chronic Category: Medical Code(s): G40.909 - Epilepsy, unspecified, not intractable, without status epilepticus (3) Acute heart failure with preserved ejection fraction (HFpEF): Status: Acute Category: Medical Code(s): I50.31 - Acute diastolic (congestive) heart failure (4) Obesity (BMI 30-39.9): Status: Acute Category: Medical Code(s): E66.9 - Obesity, unspecified Plan Mr. Laurent is a 48-year-old male with history of seizure disorder on [facility] who lives at [facility]. Had what is suspected to be a syncopal episode. Concern for CHF on workup. Discussed case with ER physician, request admission for further management. I agreed to admit for diuresis and further treatment. Responding to diuresis. Continues to require inpatient management. Will reevaluate possible discharge in the morning. Problems addressed as follows: Syncope New diagnosis of CHF -BNP elevated at 840, troponin negative at less than 0.01 on serial monitoring. Per my review of chest x-ray, has increased pulmonary vascular congestion bilaterally. -Continue Lasix 40 mg IV twice daily today, transition to Bumex 1 mg daily in the morning -Stable on room air. Goal sats greater 90%. - echo with preliminary read showing elevated RVSP. Edema improving, 1+ bilateral -No arrhythmia on telemetry, continue to monitor -Initiate metoprolol succinate 12 and half milligrams daily. - Repeat CBC, CMP, magnesium ordered for the morning. BUN 15, creatinine 1.3. Still remains normal. Potassium 3.8, magnesium 1.8. Mood disorder: Continue home Abilify 20 mg twice daily, benztropine 0.5 mg twice daily, Prozac 40 mg daily, Ativan 1 mg 3 times a day, trazodone 50 mg nightly Seizure disorder: Free valproic acid level pending. Continue divalproex extended release 1.25 g nightly. Hypothyroid: Continue levothyroxine 75 mcg daily due to elevated TSH of 8 Obesity complicates all aspects of his care Continue allopurinol milligrams daily for gout Continue tamsulosin 0.4 mg daily for BPH Continue pantoprazole 40 mg daily for GERD Full code Lovenox 40 mg subcu daily Cardiac diet
--- NOTE | 2024-06-06 18:10 | PC.NURSE ---
Pt is aox 1 with confusion, 20g l fa sl, bed alarm active, up with assistance times one, cardiac diet, uses a urinal, on seizure precautions.
[2024-06-06] MEDS: TRAZODONE 50MG TABLET 50 MG PO (21:36)
[2024-06-06] MEDS: DIVALPROEX 250MG (EXTENDED-RELEASE) TABLET 1250 MG PO (21:36)
[2024-06-07] VITALS: BP 102/67; PULSE 69; PULSE 70; RESP 16; TEMP 36.6; O2SAT 98
[2024-06-07 04:00] VITALS: BP 112/70; PULSE 70; RESP 16; TEMP 36.5; O2SAT 95; BMI 36.3
[2024-06-07 08:00] VITALS: BP 131/64; PULSE 76; RESP 18; TEMP 36.6; O2SAT 96
--- NOTE | 2024-06-07 08:04 | EXP.DC.SUM ---
General Admission date:: 06/05/24 Discharge date: 06/07/24 HPI HPI HPI: Mr. Ribeiro is a 48-year-old male who presents from [facility]. Had an episode today where he was getting out of bed and felt very faint. Woke up on the floor after the aides at the [facility] [facility] with themselves into his room because he would not respond to knocking at the door per his report. He has a known history of seizures but does not think he had a seizure today. Denied any postictal phase. Was complaining of feeling lightheaded. On arrival to the ER, complaining of some right ankle pain. Denies chest pain, nausea, vomiting, shortness of breath. But does state he occasionally has some shortness of breath or chest pain (but not today). Continues to feel lightheaded. Appears at baseline mentation. Noted to have edema on exam. Workup in the ER with findings of elevated BNP, negative troponin. Chest imaging with increased pulmonary vascular markings. When EMS arrived, patient was having PVCs on monitoring. Initially having some arrhythmia on presentation to the ER, return to sinus rhythm. Given concern for new onset heart failure with edema and arrhythmia causing syncope, medicine was consulted for admission and further management. Patient pleasant on exam. Alert and oriented x 2. Hospital Course Hospital Course Hospital Course: Mr. Ribeiro is a 48-year-old male with history of seizure disorder on [facility] who lives at [facility]. Had what is suspected to be a syncopal episode. Concern for CHF on workup. Discussed case with ER physician, request admission for further management. I agreed to admit for diuresis and further treatment. Responded well to diet assist. Stable on room air. Negative fluid status during admission. Echo confirms diastolic heart failure. Stable to discharge back to personal care facility to continue treatment. Problems addressed as follows: Syncope New diagnosis of CHF -BNP elevated at 840, troponin negative at less than 0.01 on serial monitoring. Per my review of chest x-ray, had increased pulmonary vascular congestion bilaterally on admission. Initiated on IV diuretics. Responded well. Transition to Bumex 1 mg daily to continue at discharge. Patient remained stable on room air. Echo obtained with preserved ejection fraction but elevated RVSP consistent with heart failure with preserved ejection fraction. This is a new diagnosis. Additionally initiated metoprolol succinate 12.5 mg daily for rate control and goal-directed therapy. Kidney function and electrolytes remained stable during admission. Mood disorder: Continue home Abilify 20 mg twice daily, benztropine 0.5 mg twice daily, Prozac 40 mg daily, Ativan 1 mg 3 times a day, trazodone 50 mg nightly Seizure disorder: Free valproic acid level obtained and still pending at discharge. Continue divalproex extended release 1250mg nightly. Hypothyroid: Continue levothyroxine 75 mcg daily due to elevated TSH of 8 Continue allopurinol 300mg daily for gout Continue tamsulosin 0.4 mg daily for BPH Continue pantoprazole 40 mg daily for GERD Exam Data for Last 24 hours Vital signs and Labs for Last 24 Hours: Temp Pulse Resp BP Pulse Ox O2 Del Method 97.7 F 70 16 112/70 95 Room Air 06/07/24 04:00 06/07/24 04:00 06/07/24 04:00 06/07/24 04:00 06/07/24 04:00 06/07/24 07:49 Laboratory Results - last 24 hr 06/06/24 07:08: Sodium 139, Potassium 3.8 D, Chloride 103, Carbon Dioxide 32 H, Anion Gap 7.8, BUN 15 D, Creatinine 1.30 H, Estimated Creat Clear 98, Estimated GFR 58 L, Est GFR ( Amer) 71, Glucose 112 H, Calcium 8.4, Magnesium 1.8, Total Bilirubin 0.3, AST 23 D, ALT 15, Alkaline Phosphatase 69, Total Protein 7.0, Albumin 3.4 L D, Globulin 3.6 H, Albumin/Globulin Ratio 0.9 L, Triglycerides 234 H, Cholesterol 179, LDL Cholesterol Direct 106.10, VLDL Cholesterol 47 H, HDL Cholesterol 30 L, Cholesterol/HDL Ratio 6.0 H I & O for Last 24 hours: Intake & Output 06/04/24 06/05/24 06/06/24 06/07/24 23:59 23:59 23:59 23:59 Intake Total 360 / 360 720 / 1080 360 / 360 Output Total 2250 / 3230 2780 / 2780 175 / 175 Balance -1890 / -2870 -2060 / -1700 185 / 185 Weight 104.525 kg 102.058 kg 102.693 kg Constitutional Constitutional: no acute distress, obese, chronically ill appearing and cooperative *Routine HEENT Exam Head: Present normocephalic Eye: Present EOMI and PERRL ENT: Present mucous membranes moist *Routine Neck Exam Neck: Present supple; Absent lymphadenopathy *Routine Respiratory Exam Respiratory: Present CTA bilaterally; Absent respiratory distress, rhonchi, stridor, wheezes or crackles *Routine Cardiovascular Exam Cardiovascular: Present RRR *Routine Abdominal Exam Abdominal: Present soft and normoactive bowel sounds; Absent tenderness *Routine Rectal Exam Patient deferred: visual exam *Routine Exam Patient deferred: penile exam *Routine Extremities Exam Extremities: Present edema (trace); Absent cyanosis or clubbing *Routine Skin Exam Skin: Present warm; Absent rash *Routine Neurological Exam Neurological: Present alert, oriented X3 and moving all extremities; Absent altered mental status Results Data Completed and Pending Labs on day of discharge: Labs from last 24 hours 06/06/24 07:08 Sodium 139 Potassium 3.8 D Chloride 103 Carbon Dioxide 32 H Anion Gap 7.8 BUN 15 D Creatinine 1.30 H Estimated Creat Clear 98 Estimated GFR 58 L Est GFR ( Amer) 71 Glucose 112 H Calcium 8.4 Magnesium 1.8 Total Bilirubin 0.3 AST 23 D ALT 15 Alkaline Phosphatase 69 Total Protein 7.0 Albumin 3.4 L D Globulin 3.6 H Albumin/Globulin Ratio 0.9 L Triglycerides 234 H Cholesterol 179 LDL Cholesterol Direct 106.10 VLDL Cholesterol 47 H HDL Cholesterol 30 L Cholesterol/HDL Ratio 6.0 H DS: Diagnosis Discharge Diagnosis (1) Acute heart failure with preserved ejection fraction (HFpEF): Status: Acute Code(s): I50.31 - Acute diastolic (congestive) heart failure (2) Syncope: Status: Acute Code(s): R55 - Syncope and collapse (3) Seizure disorder: Status: Chronic Code(s): G40.909 - Epilepsy, unspecified, not intractable, without status epilepticus (4) Obesity (BMI 30-39.9): Status: Acute Code(s): E66.9 - Obesity, unspecified Meds Home Medications and Allergies Home Medications ?Medication ?Instructions ?Recorded ?Confirmed ?Type acetaminophen 325 mg tablet 650 mg PO Q4H PRN Pain (Scale 06/05/24 06/06/24 History Score 1-3) albuterol sulfate 90 mcg/actuation 2 puff inhalation Q4H PRN SOA 06/05/24 06/05/24 History aerosol inhaler (Ventolin HFA) allopurinol 300 mg tablet 300 mg PO DAILY 06/05/24 06/05/24 History aripiprazole 20 mg tablet 20 mg PO BID 06/05/24 06/05/24 History benztropine 0.5 mg tablet 0.5 mg PO BID 06/05/24 06/05/24 History divalproex 250 mg tablet,extended 250 mg PO HS 06/05/24 06/05/24 History release 24 hr docusate sodium 250 mg capsule 250 mg PO NEEDED PRN 06/05/24 06/05/24 History Constipation fluoxetine 40 mg capsule 40 mg PO DAILY 06/05/24 06/05/24 History hydroxyzine HCl 25 mg tablet 25 mg PO Q4HP PRN ANXIETY 06/05/24 06/06/24 History lorazepam 1 mg tablet 1 mg PO TID Anxiety 06/05/24 06/05/24 History metformin 500 mg tablet 500 mg PO BID 06/05/24 06/05/24 History pantoprazole 40 mg tablet,delayed 40 mg PO DAILY 06/05/24 06/05/24 History release tamsulosin 0.4 mg capsule 0.4 mg PO DAILY 06/05/24 06/05/24 History trazodone 50 mg tablet 50 mg PO HS 06/05/24 06/05/24 History divalproex 500 mg tablet,extended 1,000 mg PO HS 06/06/24 06/06/24 History release 24 hr bumetanide 1 mg tablet 1 mg PO DAILY 30 days #30 tabs 06/07/24 Rx levothyroxine 75 mcg tablet 75 mcg PO DAILYDM 30 days #30 tabs 06/07/24 Rx (Synthroid) metoprolol succinate 25 mg 12.5 mg (1/2 x 25 mg) PO DAILY 30 06/07/24 Rx tablet,extended release 24 hr days #15 tabs New Prescriptions to Start Prescriptions: bumetanide Spencer Escobar levothyroxine [Synthroid] Spencer Escobar metoprolol succinate Spencer Escobar Allergies Allergy/AdvReac Type Severity Reaction Status Date / Time carbamazepine (From Tegretol) Allergy Verified 10/30/23 16:25 Discharge Plan Disposition Patient Disposition: Home, Self-Care Condition: Fair Discharge Order Discharge Orders: Discharge Order (Routine); Ordered 06/07/24 Ordered By: Spencer Escobar Follow up Plan Follow up with: Rajiv Godfrey, [employer] [Primary Care Provider] - Enter time for follow up (call to follow up with your pcp.) Prescriptions/Medication Reconciliation: New levothyroxine [Synthroid] 75 mcg Tablet 75 mcg PO DAILYDM 30 Days Qty: 30 0RF bumetanide 1 mg Tablet 1 mg PO DAILY 30 Days Qty: 30 0RF metoprolol succinate 25 mg Tablet Extended Release 24 Hr 12.5 mg PO DAILY 30 Days Qty: 15 0RF Continued fluoxetine 40 mg Capsule 40 mg PO DAILY metformin 500 mg Tablet 500 mg PO BID acetaminophen 325 mg Tablet 650 mg PO Q4H PRN (Reason: Pain (Scale Score 1-3)) benztropine 0.5 mg Tablet 0.5 mg PO BID trazodone 50 mg Tablet 50 mg PO HS tamsulosin 0.4 mg Capsule 0.4 mg PO DAILY pantoprazole 40 mg Tablet,Delayed Release (Dr/Ec) 40 mg PO DAILY hydroxyzine HCl 25 mg Tablet 25 mg PO Q4HP PRN (Reason: ANXIETY ) allopurinol 300 mg Tablet 300 mg PO DAILY lorazepam 1 mg Tablet 1 mg PO TID albuterol sulfate [Ventolin HFA] 90 mcg/actuation Hfa Aerosol Inhaler 2 puff INHALATION Q4H PRN (Reason: SOA) docusate sodium 250 mg Capsule 250 mg PO NEEDED PRN (Reason: Constipation) aripiprazole 20 mg Tablet 20 mg PO BID divalproex 250 mg Tablet Extended Release 24 Hr 250 mg PO HS divalproex 500 mg Tablet Extended Release 24 Hr 1,000 mg PO HS Rx Instructions: TAKE WITH 250 MG TABLET Discontinued levothyroxine 50 mcg Tablet 50 mcg PO DAILY Problem Reconciliation Problems Reviewed?: Yes Patient Discharge Instructions ACTIVITY: Continue current activity DIET: continue same diet Patient Instructions: DI for Syncope in Adults (Fainting), DI for Heart Failure Print Language: Bulgarian Providers Primary Care Provider: Rajiv Godfrey Admit Provider: Spencer Escobar Attending Provider: Spencer Escobar
[2024-06-07 08:05] LABS: White Blood Count 8.7 K/mm3 (4.8-10.8)
[2024-06-07 08:06] LABS: Basophils % 0.5 % (0.1-2.0); Chloride 99 mmol/L (98-107); Eosinophils % 1.7 % (0.1-12.0); Hematocrit 36.7 % (42.0-52.0); Hemoglobin 12.4 g/dL (14.1-18.0); Lymphocytes % 28.1 % (10-50); Mean Corpuscular HGB Conc 33.8 g/dL (31.8-35.4); Mean Corpuscular Hemoglobin 31.6 pg (27.0-31.2); Mean Corpuscular Volume 93.4 fl (80-94); Mean Platelet Volume 9.4 fl (7.4-10.4); Monocytes % 8.1 % (1.7-9.3); Neutrophils % 60.6 % (37.0-80.0); Platelet Count 261 K/mm3 (142-424); Potassium 4.2 mmoL/L (3.5-5.1); Red Blood Count 3.93 M/mm3 (4.60-6.20); Sodium 137 mmol/L (136-145)
[2024-06-07 08:07] LABS: Eosinophils # 0.2 K/mm3 (0.0-0.4); Lymphocytes # 2.4 K/mm3 (0.7-4.5); Monocytes # 0.7 K/mm3 (0.1-1.0); Neutrophils # 5.3 K/mm3 (1.8-7.8)
[2024-06-07 08:09] LABS: Anion Gap 9.2 mEq/L (5-15); Blood Urea Nitrogen 21 mg/dl (9-20); Calcium 8.7 mg/dl (8.4-10.2); Carbon Dioxide 33 mmol/L (22.0-30.0); Creatinine Clearance Estimated 99 mL/min (50-200); Estimated Glomerular Filt Rate 58 ml/min (>60); GFR (African American) 71 ML/MIN (>60); Glucose 113 mg/dl (74-100); Magnesium 1.8 mg/dl (1.6-2.3)
[2024-06-07] MEDS: BUMETANIDE 1 MG TABLET PO (08:17)
[2024-06-07] MEDS: PANTOPRAZOLE 40MG TABLET 40 MG PO (08:17)
[2024-06-07] MEDS: BENZTROPINE 1MG TABLET 0.5 MG PO (08:17)
[2024-06-07] MEDS: METFORMIN 500MG TABLET 500 MG PO (08:18)
[2024-06-07] MEDS: FLUOXETINE 20MG CAPSULE 40 MG PO (08:18)
[2024-06-07] MEDS: ARIPiprazole 10MG TABLET 20 MG PO (08:18)
[2024-06-07] MEDS: LORazepam 1MG TABLET 1 MG PO (08:19)
[2024-06-07] MEDS: LEVOTHYROXINE 75MCG (0.075MG) TAB 75 MCG PO (08:19)
[2024-06-07] MEDS: ENOXAPARIN 40MG/0.4ML SYRINGE 40 MG SUBCUT (08:19)
[2024-06-07] MEDS: ALLOPURINOL 300MG TABLET 300 MG PO (08:19)
[2024-06-07] MEDS: METOPROLOL SUCCINATE XL 25MG TABLET 12.5 MG PO (08:19)
[2024-06-07] MEDS: TAMSULOSIN 0.4MG CAPSULE 0.4 MG PO (08:19)
--- NOTE | 2024-06-07 11:43 | PC.NURSE ---
Report called to [facility].
== END 2024-06-07 13:03 | disposition home or self-care (01) | DRG 293 ==
LOC: ER 14:57 → 2ND 15:02
PROVIDERS: Admitting Provider Internal Medicine Adolescent Medicine; Emergency Provider Student in an Organized Health Care Education/Training Program; PCP Nurse Practitioner Acute Care; Visit Provider Internal Medicine Adolescent Medicine
DX: I50.31 Acute diastolic (congestive) heart failure (principal); R55 Syncope and collapse; G40.909 Epilepsy, unspecified, not intractable, without status epilepticus; E66.9 Obesity, unspecified; Z68.36 Body mass index [BMI] 36.0-36.9, adult; E03.9 Hypothyroidism, unspecified
CPT/HCPCS: 36415; 70450; 71045; 73600; 80048; 80053; 80061; 80165; 83605; 83735; 83880; 84439; 84443; 84484; 85025; 86803; 87389; 87636; 93005; 93306; 99285; J1650; J1940